=== PATIENT | male | born 1990 | race Asian ===

== ENCOUNTER → 2017-03-05 | Outpatient (REF) | LOC: WSOH 12:46 | DX: Z00.00 Encounter for general adult medical examination without abnormal findings (principal) ==

== ENCOUNTER → 2017-03-07 | Outpatient (REF) | LOC: WSOH 16:00 | DX: Z02.89 Encounter for other administrative examinations (principal) ==

== ENCOUNTER → 2017-03-12 | Outpatient (REF) | LOC: WSOH 08:14 | DX: Z02.89 Encounter for other administrative examinations (principal) ==